=== PATIENT | male | born 1985 | race American Indian/Alaskan Native ===

== ENCOUNTER 2020-10-15 04:44 | Emergency (ER) | payer SELFPAY ==
--- NOTE | 2020-10-15 04:51 | Emergency Department Report ---
ED CPR HPI - General Chief Complaint: Cardiac Arrest/CPR Stated Complaint: CARDIAC ARREST Time Seen by Provider: 10/15/20 04:47 Source: EMS (Verbal report received from emergency medical services. EMS documentation not available at time of chart dictation ), RN notes reviewed Mode of arrival: Stretcher Limitations: Altered Mental Status, Physical Limitation - History of Present Illness Initial Comments: The patient was evaluated in the emergency department for symptoms described in the history of present illness. He/she was evaluated in the context of the global COVID-19 pandemic, which necessitated consideration that the patient might be at risk for infection with the virus that causes COVID-19. Institutional protocols and algorithms that pertain to the evaluation of patients at risk for COVID-19 are in a state of rapid change based on information released by regulatory bodies including the CDC and federal and state organizations. These policies and algorithms were followed during the patient's care in the emergency department. Please note that these policies, procedures and recommendations changed on a rapid basis. This is an -[place] gentleman, unknown to myself previously, who appears to be in his 30s, who is brought to the hospital by emergency medical services as out of hospital cardiac arrest. Patient intubated with a GCS of 3, and nonresponsive, therefore, history obtained from EMS. At the moment, friends, family/bystander is not available for additional information/collateral information. EMS reports to me that patient was found down at home by friends or family, for uncertain duration of time, and for uncertain mechanism. They do not think that family started CPR. They tell me that emergency medical services/police were activated, at approximately 3:45 AM, and that police started CPR. EMS states that the patient has not had a shockable rhythm for approximately 45 minutes, and has been in asystole for approximately 45 minutes. EMS placed a Robin airway, give aggressive chest compressions, and standard ACLS medications. Accu-Chek appropriate, patient has not had return of spontaneous circulation and is not demonstrating signs of life. Upon arrival to the emergency room, pupils are fixed and dilated and do not react to light. Patient continues to receive high-quality CPR from EMS. Unfortunately, in spite of aggressive resuscitative measures by EMS, pulses are not obtained, and resuscitation efforts were terminated secondary to medical futility, prolonged downtime MD Complaint: found unresponsive -: unknown Initial Findings in the Field: no pulse, PEA ROSC in the Field: No Associated Injuries: No Treatments Prior to Arrival: other airway device, chest compressions, epinephrine mgs # ED Review of Systems ROS: Stated complaint: CARDIAC ARREST Other details as noted in HPI Comment: Unobtainable due to pts medical conditions ED Physical Exam - General Limitations: Altered Mental Status, Physical Limitation, Other (GCS of 3, nonverbal) - Head Head exam: Present: normocephalic - Eye Eye exam: Present: normal appearance, other (Pupils fixed and dilated and do not react to light) - ENT ENT exam: Present: mucous membranes moist, other (Robin airway noted in oropharynx) - Neck Neck exam: Present: normal inspection - Respiratory Respiratory exam: Present: other (Patient is not breathing spontaneously). Absent: normal lung sounds bilaterally, respiratory distress - Cardiovascular Cardiovascular Exam: Absent: regular rate, normal rhythm (No pulses are appreciated), systolic murmur, diastolic murmur, rubs, gallop - GI/Abdominal GI/Abdominal exam: Present: soft - Rectal Rectal exam: Present: deferred - Extremities Exam Extremities exam: Present: normal inspection, other (Intraosseous line noted in the left lower extremity) - Back Exam Back exam: Present: normal inspection - Neurological Exam Neurological exam: Present: other (Patient is nonverbal) - Skin Skin exam: Present: warm, dry, intact, normal color. Absent: rash ED Medical Decision Making - Medical Decision Making Differential diagnosis, including but not limited to: Intracranial hemorrhage, toxic metabolic encephalopathy, electrolyte derangement, bacteremia, viral Critical care attestation.: If time is entered above; I have spent that time in minutes in the direct care of this critically ill patient, excluding procedure time. ED Disposition Clinical Impression: Cardiac arrest Disposition: DC-20 Is pt being admited?: No Does the pt Need Aspirin: No Condition: Undetermined
== END 2020-10-15 05:00 ==
LOC: ED 04:44
DX: I46.9 Cardiac arrest, cause unspecified (principal)
CPT/HCPCS: 92950